=== PATIENT | male | born 1965 | race Caucasian/White ===

== ENCOUNTER 2017-06-21 05:57 | Day surgery (SDC) | payer BC ==
[2017-06-20 13:22] VITALS: BMI 31.6
[~2017-06-21 05:57] MED LIST: Cyclopentolate 1% Opth Drop 2 ML BOT FS SCH; EPINEPHrine 0.3 MG, Dextrose 50% 3 ML in Ophthalmic Irrigation Solution 500 ML FS SCH; Phenylephrine 2.5% Ophth Soln 5 ML BOT FS SCH
[2017-06-21] MEDS ORDERED: Cyclopentolate 1% Opth Drop 2 ML BOT ONE (06:08)
[2017-06-21] MEDS ORDERED: Phenylephrine 2.5% Ophth Soln 5 ML BOT ONE (06:09)
[2017-06-21] MEDS ORDERED: Fentanyl 100 MCG/2 ML VIAL ONE (06:16)
[2017-06-21] MEDS ORDERED: Midazolam HCl 2 mg/2 ml Vial ONE (06:16)
[2017-06-21] MEDS ORDERED: Diprivan 20 ML ONE (06:16)
--- NOTE | 2017-06-21 08:28 | OP ---
DATE OF PROCEDURE: 06/21/2017 PREOPERATIVE DIAGNOSIS: Vitreous hemorrhage, tractional detachment, right eye. POSTOPERATIVE DIAGNOSIS: Vitreous hemorrhage, tractional detachment, right eye. PROCEDURE: Pars plana vitrectomy and membrane peel, right eye. SURGEON: Dr. Krunal Holder ANESTHESIA: Local with monitored anesthesia care. PROCEDURE IN DETAIL: The patient was identified in the preoperative holding area and appropriate inf ormed consent for the planned surgical procedure on the right eye had been obtained. The patient was transported to the operative suite where appropriate cardiopulmonary monitoring was established. Lo zafar anesthesia was obtained using retrobulbar and modified Van Lint lid block using 50/50 mixture of 4% lidocaine and 0.75% bupivacaine. The patient was prepped and draped in the usual sterile manner f or ophthalmic surgery on the right eye. Lid speculum was placed in the right eye. The 25-gauge troc ars were placed in conjunctiva and sclera supratemporally, inferotemporally, and supranasally. Infus ion line was placed inferotemporally. Light pipe and vitreous cutter were inserted into the eye. Co re of vitrectomy was performed. Extensive vitreous hemorrhage was removed from the eye, revealing tr actional elements nasal to the nerve and on the nerve and a hole superiorly, the traction was removed from the nerve with end-gripping forceps and peeled into the retinal periphery. This was trimmed fl at and laser was applied to the top of the residual stump. Panretinal photocoagulation was placed, 3 60 in the periphery with attention to the superior hole. Trocars were removed and the eye was noted to retain pressure well. Retrobulbar Kenalog and subconjunctival Ancef were placed. Atropine and an tibiotic ointment were placed, and the eye was patched and shielded. The patient taken to the postop erative recovery unit in good condition having suffered no immediate perioperative complications. DISCHARGE INSTRUCTIONS: The patient was instructed to keep patch and shield on, and follow up in the morning with Dr. Holder.
== END 2017-06-21 08:34 | disposition home or self-care (01) ==
LOC: SDC 05:57
PROVIDERS: ATTEND Ophthalmology Retina Specialist
PROC: 08QE3ZZ Repair Right Retina, Percutaneous Approach (ICD-10-PCS; principal; 2017-06-21)
PROC: 08T43ZZ Resection of Right Vitreous, Percutaneous Approach (ICD-10-PCS; principal; 2017-06-21)
PROC: 08NE3ZZ Release Right Retina, Percutaneous Approach (ICD-10-PCS; principal; 2017-06-21)
DX: H43.11 Vitreous hemorrhage, right eye (principal); H33.41 Traction detachment of retina, right eye; I10 Essential (primary) hypertension; Z79.84 Long term (current) use of oral hypoglycemic drugs; Z79.899 Other long term (current) drug therapy; Z98.890 Other specified postprocedural states
CPT/HCPCS: J0171; J2250; J2704; J3010